=== PATIENT | female | born 1965 | race American Indian/Alaskan Native ===

== ENCOUNTER 2017-07-09 12:25 | Emergency (ER) | payer OTHER ==
[2017-07-09 12:52] VITALS: BMI 29.0
[2017-07-09 12:58] VITALS: O2SAT 100
[2017-07-09 13:31] LABS: ALBUMIN 4.4 g/dL (3.0-4.8); ALT/SGPT 22 U/L (7-56); AST/SGOT 23 U/L (14-36); BLOOD UREA NITROGEN 14 mg/dL (7-21); CALCIUM 9.5 mg/dL (8.4-10.5); GFR AFRICAN-AMERICAN > 60; GFR NON-AFRICAN AMERICAN > 60
[2017-07-09 13:32] LABS: BASO # 0.01 K/mm3 (0.0-2.0); BASO % 0.1 % (0.0-3.0); EOS # 0.1 (0.0-0.7); EOS % 1.7 % (1.5-5.0); GRAN # 5.19 (1.4-6.5); GRAN % 67.3 % (50.0-68.0); HEMOGLOBIN 14.5 g/dL (12.0-16.0); LYMPH # 2.1 (1.2-3.4); LYMPH % 26.8 % (22.0-35.0); MEAN CELL VOLUME 87.8 fl (80.0-105.0); MEAN CORPUSCULAR HEMOGLOBIN 30.5 pg (25.0-35.0); MEAN CORPUSCULAR HGB CONC 34.7 g/dl (31.0-37.0); MEAN PLATELET VOLUME 10.7 fl (7.0-11.0); MONO # 0.3 (0.1-0.6); MONO % 4.1 % (1.0-6.0); RBC 4.76 10^6/uL (3.5-6.1); RED CELL DISTRIBUTION WIDTH 14.4 % (11.5-14.5); WHITE BLOOD COUNT 7.7 10^3/ul (4.5-11.0)
[2017-07-09 13:35] LABS: ACETAMINOPHEN < 10.0 ug/ml (10.0-20.0); SALICYLATE < 1 mg/dL (2.0-20.0)
--- NOTE | 2017-07-09 13:55 | ED PDOC ---
Arrival/HPI - General Chief Complaint: Psychiatric Evaluation Time Seen by Provider: 07/09/17 12:30 Historian: Patient - History of Present Illness Narrative History of Present Illness (Text): 07/09/17 13:52 52yo female with PMHx of hypertension and psychiatric history of Bipolar present with complaint of auditory hallucination. States the voice is telling her to "cut her wrist". She however denies suicidal ideation, homicidal ideation , somatic complaint. Her BP is elevated in ED and she states she did not take her medication today. Past Medical History - Provider Review Nursing Documentation Reviewed: Yes - Infectious Disease Hx of Infectious Diseases: None - Cardiac Hx Hypertension: Yes - Pulmonary Hx Respiratory Disorders: No - Neurological Hx Neurological Disorder: No - HEENT Hx HEENT Disorder: No - Renal Hx Renal Disorder: No - Endocrine/Metabolic Hx Systemic Lupus Erythematosus: Yes - Hematological/Oncological Hx Anemia: Yes - Integumentary Hx Dermatological Disorder: No - Musculoskeletal/Rheumatological Hx Arthritis: Yes - Gastrointestinal Hx Gastritis: Yes - Genitourinary/Gynecological Hx Genitourinary Disorders: No - Psychiatric Hx Anxiety: Yes Hx Bipolar Disorder: Yes Hx Psychosis: Yes Hx Substance Use: No - Anesthesia Hx Anesthesia: Yes Hx Anesthesia Reactions: No Hx Malignant Hyperthermia: No - Suicidal Assessment Feels Threatened In Home Enviroment: No Family/Social History - Physician Review Nursing Documentation Reviewed: Yes Family/Social History: Unknown Family HX Smoking Status: Light Smoker < 10 Cigarettes Daily Hx Alcohol Use: No Hx Substance Use: No Allergies/Home Meds Allergies/Adverse Reactions: Allergies No Known Allergies Allergy (Verified 06/20/17 12:30) Home Medications: Home Meds Medication Instructions Recorded Confirmed Hydroxychloroquine Sulfate 200 mg PO DAILY 02/07/12 07/09/17 [Plaquenil] ALPRAZolam [Xanax] 1 tab PO TID 04/23/17 07/09/17 Aspirin 1 tab PO DAILY 04/23/17 07/09/17 Carvedilol [Coreg] 1 tab PO BID 04/23/17 07/09/17 Dexlansoprazole [Dexilant] 1 tab PO DAILY 04/23/17 07/09/17 [place] Carbonate ER Tab [[place] 1 tab PO DAILY 04/23/17 07/09/17 Carbonate] Loratadine 1 tab PO DAILY 04/23/17 07/09/17 Losartan Potassium 1 tab PO DAILY 04/23/17 07/09/17 Mycophenolate Mofetil 1 tab PO DAILY 04/23/17 07/09/17 Prazosin HCL [Minipress] 1 tab PO DAILY 04/23/17 07/09/17 QUEtiapine [SEROquel] 1 tab PO DAILY 04/23/17 07/09/17 Topiramate [Topamax] 1 tab PO DAILY 04/23/17 07/09/17 Clonidine HCl [Catapres] 0.3 mg PO TID 06/04/17 07/09/17 amLODIPine [Norvasc] 10 mg PO DAILY 06/04/17 07/09/17 [place] Carbonate ER Tab [[place] 450 mg PO TID 07/09/17 07/09/17 Carbonate] QUEtiapine [SEROquel] 200 mg PO DAILY 07/09/17 07/09/17 Review of Systems - Physician Review All systems were reviewed & negative as marked: Yes - Review of Systems Constitutional: Normal Eyes: Normal ENT: Normal Respiratory: Normal Cardiovascular: Normal Gastrointestinal: Normal Genitourinary Female: Normal Musculoskeletal: Normal Skin: Normal Neurological: Normal Endocrine: Normal Hemo/Lymphatic: Normal Psychiatric: Other (hallucination) Physical Exam Vital Signs Reviewed: Yes Vital Signs Temp Pulse Resp BP Pulse Ox 07/09/17 15:37 98 F 65 18 165/122 H 100 07/09/17 15:15 98.4 F 68 19 200/117 H 100 07/09/17 15:08 68 200/117 H 07/09/17 12:26 97.5 F L 74 18 169/125 H 100 Temperature: Afebrile Blood Pressure: Hypertensive Pulse: Regular Respiratory Rate: Normal Appearance: Positive for: Well-Appearing, Non-Toxic, Comfortable Pain Distress: None Mental Status: Positive for: Alert and Oriented X 3 - Systems Exam Head: Present: Atraumatic, Normocephalic Pupils: Present: PERRL Extroacular Muscles: Present: EOMI Conjunctiva: Present: Normal Mouth: Present: Moist Mucous Membranes Neck: Present: Normal Range of Motion Respiratory/Chest: Present: Clear to Auscultation, Good Air Exchange. No: Respiratory Distress, Accessory Muscle Use Cardiovascular: Present: Regular Rate and Rhythm, Normal S1, S2. No: Murmurs Abdomen: Present: Normal Bowel Sounds. No: Tenderness, Distention, Peritoneal Signs Back: Present: Normal Inspection Upper Extremity: Present: Normal Inspection. No: Cyanosis, Edema Lower Extremity: Present: Normal Inspection. No: Edema Neurological: Present: GCS=15, CN II-XII Intact, Speech Normal Skin: Present: Warm, Dry, Normal Color. No: Rashes Psychiatric: Present: Alert, Oriented x 3, Normal Insight, Normal Concentration Medical Decision Making ED Course and Treatment: 07/09/17 15:12 PT presented for states history. Her BP was elevated, pt however states that her BP of 167/117 is much better than her baseline. Notes that she did not take her BP medication today. she denies chest pain, SOB, headache, facial droop, focal weakness, dizziness, visual change, She was given antihypertensive in ED and was cleared for psych evaluation. PT was seen in ED by ROSALIO Kaye and was discharged by psych On re evaluation her BP was still elevated, pt however refused further evaluation and treatment of her BP in ED. States she is aware of her BP and knows that it is usually in the 200/100's as a baseline. States she will go home and take her medications. She understood the risk of possible cardiac or neurological event that can happen with uncontrolled hypertension. She states she understands this risk and still declined further treatment in ED. she was neurologically intact. AAO x3 in ED. She was DC and referred to her PMD. Advised to return to ED anything she changes her mind. - Lab Interpretations Lab Results: 07/09/17 13:11 07/09/17 13:11 Lab Results 07/09/17 13:11: Alcohol, Quantitative < 10 07/09/17 13:11: Salicylates < 1 L, Acetaminophen < 10.0 L 07/09/17 13:11: Sodium 142, Potassium 3.9, Chloride 111 H, Carbon Dioxide 21, Anion Gap 15, BUN 14, Creatinine 0.9, Est GFR ( Amer) > 60, Est GFR (Non- Af Amer) > 60, Random Glucose 110, Calcium 9.5, Total Bilirubin 0.4, AST 23, ALT 22, Alkaline Phosphatase 81, Total Protein 8.7 H, Albumin 4.4, Globulin 4.3 , Albumin/Globulin Ratio 1.0 L 07/09/17 13:11: WBC 7.7 D, RBC 4.76, Hgb 14.5, Hct 41.8, MCV 87.8, MCH 30.5, MCHC 34.7, RDW 14.4, Plt Count 211, MPV 10.7, Gran % 67.3, Lymph % (Auto) 26.8, [place] % (Auto) 4.1, Eos % (Auto) 1.7, Baso % (Auto) 0.1, Gran # 5.19, Lymph # 2.1 , [place] # 0.3, Eos # 0.1, Baso # 0.01 - Medication Orders Current Medication Orders: Discontinued Medications Hydralazine HCl (Apresoline) 25 mg PO ONCE STA Stop: 07/09/17 13:56 Last Admin: 07/09/17 15:08 Dose: 25 mg VINEET Pulse and Blood Pressure Document 07/09/17 15:08 RYLIE (Rec: 07/09/17 15:12 [facility] [id number]) Pulse Pulse Rate (60-90 beats/min) 68 Blood Pressure Blood Pressure (100/60-150/90 mm Hg) 200/117 Disposition/Present on Arrival - Present on Arrival Any Indicators Present on Arrival: No History of DVT/PE: No History of Uncontrolled Diabetes: No Urinary Catheter: No History of Decub. Ulcer: No History Surgical Site Infection Following: None - Disposition Have Diagnosis and Disposition been Completed?: Yes Diagnosis: Hypertension, Hallucination Disposition: HOME/ ROUTINE Disposition Time: 15:55 Patient Plan: Discharge Patient Problems: Current Active Problems Problem Status Onset Hallucination Acute Hypertension Acute Condition: FAIR Additional Instructions: Follow up with your doctor for your BP Follow up with mental health Return to ED for any new symptoms Referrals: Yun Larsen MD [Primary Care Provider] - Follow up with primary Forms: Frage[employer] (Italian)
[2017-07-09 15:38] VITALS: BP 165/122; PULSE 65; RESP 18; TEMP 98
--- NOTE | 2017-07-09 21:55 | CARD ---
APPROVED REPORT EKG Measurement Heart [id number] ID [id number] <Conclusion> Normal sinus rhythm Possible Left atrial enlargement Left ventricular hypertrophy Nonspecific T wave abnormality Prolonged QT Abnormal ECG
== END 2017-07-09 16:08 | disposition home or self-care (01) ==
LOC: ED 12:25
DX: I10 Essential (primary) hypertension (principal); R44.0 Auditory hallucinations; F17.210 Nicotine dependence, cigarettes, uncomplicated; M32.9 Systemic lupus erythematosus, unspecified